=== PATIENT | female | born 1935 | race Caucasian/White ===

== ENCOUNTER → 2018-05-14 | Outpatient (CLI) | payer MEDICARE ==
[~2018-05-14] MED LIST: ATIVAN1 MG PO; CALCIUM600 MG PO; CORGARD40 M1 PO; FISH OIL 10001000 MG PO; IMITREX50 MG PO; MAXZIDE 75 MG-1 EACH PO; MAXZIDE PO; RANITIDINE150 MG PO; SYNTHROID0.025 MG PO; TRIAMTERENE/HCT1 TA2 PO; TRICOR145 MG PO
--- NOTE | ~2018-05-14 | ST ---
[place], [place] EXERCISE STRESS TEST REPORT [id number] UNIT #: [id number] ROOM: DOCTOR: ASIM WHITNEY MD BIRTHDATE: [birth year] DOS: 05/14/2018 TIME: 10:40 a.m. LEXISCAN NUCLEAR STRESS TEST AGE: She is 82-year-old. HEIGHT: 62 inches. WEIGHT: 159 pounds. REFERRED BY: Asim Whitney MD FINDINGS: Baseline heart rate of 61, blood pressure of 138/72, oxygen saturation of 99%. Clear lungs. Baseline EKG shows sinus bradycardia, rate 60 per minute. DE interval is 0.[address]-T wave changes seen. A 0.4 mg of Lexiscan was infused over 10 seconds and nuclear injection was made at 40 seconds and the patient was observed in recovery phase for 4 minutes. Heart rate and blood pressure response was physiological. The patient complained of mild shortness of breath and chest heaviness, which lasted for 2 minutes[address] nondiagnostic [address]-T wave changes seen in anterior wall without any ST depression. No arrhythmias noted. The patient tolerated Lexiscan infusion very well. The final report pending nuclear images. This is a nondiagnostic study pending nuclear images. ASIM WHITNEY MD CM:STRESS:EXERCISE STRESS TEST REPORT [id number] ASIM WHITNEY MD
== END | disposition home or self-care (01) ==
LOC: CARD 00:14
DX: R07.89 Other chest pain (principal); R94.39 Abnormal result of other cardiovascular function study

== ENCOUNTER → 2018-09-10 | Day surgery (SDC) | payer MEDICARE ==
[~2018-09-10] VITALS: Ht 160 cm; Wt 72.6 kg
[~2018-09-10] MED LIST changes: +ATORVASTATIN CA20 M1 PO
--- NOTE | ~2018-09-10 | O ---
[place], [place] OPERATIVE NOTE NAME: SOMMER SALOMON UNIT #: [id number] ROOM: DOCTOR: TITUS HOLBROOK MD BIRTHDATE: [birth year] DOS: 09/10/2018 PREOPERATIVE DIAGNOSIS: Cataract, left eye. POSTOPERATIVE DIAGNOSIS: Cataract, left eye. OPERATION: Extracapsular cataract extraction by phacoemulsification with posterior chamber intraocular lens implantation, left eye. ANESTHESIA: Monitored standby. OPERATIVE FINDINGS AND PROCEDURE: 2% Xylocaine topical anesthetic gel was applied to the eye in the preop area. The patient was taken to the operating room and prepped and draped in the standard fashion for sterile intraocular surgery. A time out procedure was performed verifying correct patient, correct site and corrects lens with Pranav Holbrook M.D. The operating microscope was swung into position and the lid speculum was inserted. Using a Nancy paracentesis blade, a paracentesis was made through clear cornea. Viscoelastic was used to fill the anterior chamber. Using a metal keratome a 2.4 mm self-sealing clear corneal cataract incision was made temporally at the limbus. Using a pre-bent 25 gauge cystotome needle, a standard continuous curvilinear capsulorrhexis was performed. The anterior capsule was removed with forceps. The lens nucleus was hydrodissected and phacoemulsified in the posterior chamber. Cortical material was removed with the irrigation aspiration hand piece and the posterior capsule was then polished with a curet under irrigation. The posterior chamber and capsular bag were filled with viscoelastic. A posterior chamber intraocular lens manufactured by: [employer], Model #[id number], and 20.5 diopters in strength were then inserted into the posterior chamber and within the capsular bag using the lens cartridge and injector system. Viscoelastic was removed using the irrigation aspiration handpiece. The anterior chamber was filled with balanced salt solution through the paracentesis. Both the paracentesis site and cataract incisions were hydrated with BSS and verified to be water-tight and self-sealing. Cefuroxime 1 mg/0.1 mL was injected into the anterior chamber through the paracentesis site. The incision checked to be water-tight using a Weck-Munira sponge. The integrity of the cataract wound and ocular tension were checked. Lid speculum and drapes were removed. The patient was transferred from the operating room to the recovery room in satisfactory condition. [place], [place] OPERATIVE NOTE NAME: SOMMER SALOMON UNIT #: [id number] ROOM: DOCTOR: TITUS HOLBROOK MD BIRTHDATE: [birth year] TITUS HOLBROOK MD CM:OPRECORD:OPERATIVE NOTE TITUS HOLBROOK MD 09/10/18 [id number] interface
[2018-09-10 07:59] VITALS: BP 105/64
[2018-09-10 09:35] VITALS: BP 114/64
[2018-09-10 09:50] VITALS: BP 111/69
[2018-09-10 10:05] VITALS: BP 121/53
== END | disposition home or self-care (01) ==
LOC: SDC 09-05 10:15
DX: H25.812 Combined forms of age-related cataract, left eye (principal); I10 Essential (primary) hypertension; K21.9 Gastro-esophageal reflux disease without esophagitis; E78.00 Pure hypercholesterolemia, unspecified; E07.9 Disorder of thyroid, unspecified; G43.909 Migraine, unspecified, not intractable, without status migrainosus; M19.90 Unspecified osteoarthritis, unspecified site; F41.9 Anxiety disorder, unspecified; Z90.49 Acquired absence of other specified parts of digestive tract; Z98.890 Other specified postprocedural states; Z79.899 Other long term (current) drug therapy

== ENCOUNTER → 2024-04-09 | Outpatient (CLI) | payer MEDICARE | END | disposition home or self-care (01) | LOC: RAD 10:46 | PROVIDERS: ATTEND Internal Medicine | DX: M47.817 Spondylosis without myelopathy or radiculopathy, lumbosacral region (principal); M48.061 Spinal stenosis, lumbar region without neurogenic claudication; M51.86 Other intervertebral disc disorders, lumbar region; M16.11 Unilateral primary osteoarthritis, right hip; M25.851 Other specified joint disorders, right hip ==